=== PATIENT | male | born 1980 | race Two or more races ===

== ENCOUNTER 2020-11-19 01:47 | Emergency (ER) | payer OTHER ==
[~2020-11-19] VITALS: Ht 172.7 cm; Wt 84.4 kg
[2020-11-19 02:38] VITALS: BP 142/91
[2020-11-19] MEDS ORDERED: TETANUS-DIPTH-ACEL PERTUSSIS 0.5ML SYR Tdap IM ONE (02:45)
== END 2020-11-19 03:13 | disposition home or self-care (01) ==
LOC: ER 01:51
DX: S61.012A Laceration without foreign body of left thumb without damage to nail, initial encounter (principal); I10 Essential (primary) hypertension; W26.8XXA Contact with other sharp object(s), not elsewhere classified, initial encounter; Y93.89 Activity, other specified; Y92.89 Other specified places as the place of occurrence of the external cause; Y99.8 Other external cause status
CPT/HCPCS: 12002; 90471; 90715